=== PATIENT | female | born 1980 | race Caucasian/White ===

== ENCOUNTER → 2023-02-08 | Outpatient (REF) | payer OTHER | LOC: M SFHCADAM 16:36 | PROVIDERS: ATTEND Nurse Practitioner Family | DX: L40.0 Psoriasis vulgaris (principal) ==

== ENCOUNTER → 2025-03-26 | Outpatient (REF) | payer OTHER | LOC: M SFHCADAM 09:48 | PROVIDERS: ATTEND Nurse Practitioner Family | DX: L40.0 Psoriasis vulgaris (principal) ==